=== PATIENT | male | born 1940 | race Caucasian/White ===

== ENCOUNTER → 2018-05-20 | Outpatient (CLI) | payer OTHER ==
[~2018-05-20] MED LIST: AMLODIPINE BESY10 MG PO; ASPIR 8181 MG PO; BYSTOLIC 5 MG5 M1 PO; CHLORTHALIDONE25 MG PO; CLARITIN10 MG PO; CLONIDINE HCL0.2 M2 PO; CO Q-10100 MG PO; DOXYCYCLINE 10100 M1 PO; EDARBI80 MG PO; FIBER500 MG PO; LIPITOR80 MG PO; PLAVIX 75 MG TA75 M1 PO; SPIRONOLACTONE25 M1 PO; SUPER B-50 COM1 EACH PO; XANAX 0.5 MG0.5 MG PO
== END ==
LOC: ULTRA 08:33
DX: Z01.818 Encounter for other preprocedural examination (principal); I25.10 Atherosclerotic heart disease of native coronary artery without angina pectoris; M25.78 Osteophyte, vertebrae; Z95.1 Presence of aortocoronary bypass graft

== ENCOUNTER → 2018-05-20 | Outpatient (CLI) | payer OTHER ==
[~2018-05-20] VITALS: Ht 175.3 cm; Wt 95.3 kg
[~2018-05-20] MED LIST changes: +NAPROSYN500 MG PO
[2018-05-20 10:38] LABS: HEMATOCRIT 40.3 % (42.0-52.0); HEMOGLOBIN 13.9 gm/dL (14.0-18.0); MCH 31.5 pg (26.0-34.0); MCHC 34.5 g/dL (28.0-37.0); MCV 91.4 fL (80.0-100.0); PLATELET COUNT 193 thou/uL (150-400); RBC 4.41 mil/uL (4.50-6.00); RDW 13.1 % (10.5-14.5); WBC 10.1 thou/uL (4.0-11.0)
[2018-05-20 10:46] LABS: URINE CLARITY HAZY
[2018-05-20 10:47] LABS: URINE BILIRUBIN NEGATIVE (Negative); URINE BLOOD NEGATIVE (Negative); URINE COLOR YELLOW; URINE GLUCOSE-RANDOM* NEGATIVE (Negative); URINE KETONES NEGATIVE (Negative); URINE PROTEIN (DIPSTICK) TRACE (Negative)
[2018-05-20 10:48] LABS: URINE LEUKOCYTES-REFLEX 1+ (Negative); URINE NITRITE-REFLEX POSITIVE (Negative); URINE UROBILINOGEN 0.2 E.U./dl (0.2-1.0)
[2018-05-20 10:50] LABS: APTT 30.1 Seconds (24.5-32.8); PROTIME 10.2 Seconds (9.3-11.4)
[2018-05-20 11:00] LABS: SQUAMOUS 0-3 Few /LPF (0-3)
[2018-05-20 11:01] LABS: BACTERIA-REFLEX >30 Many /HPF (None Seen); CASTS None Seen /LPF (None Seen); CRYSTALS None Seen /LPF (None Seen); URINE RBC None Seen /HPF (0-2); URINE WBC-REFLEX >25 Many /HPF (0-5)
[2018-05-20 11:20] LABS: ALBUMIN 3.9 g/dL (3.4-5.0); CALCIUM 10.5 mg/dL (8.5-10.1); CREATININE 1.5 mg/dL (0.7-1.3); POTASSIUM 4.4 mmol/L (3.5-5.1); TOTAL BILIRUBIN 0.6 mg/dL (<0.1-1.0); TOTAL PROTEIN 7.2 g/dL (6.4-8.2)
[2018-05-20 11:35] LABS: ABSOLUTE NEUTROPHILS 6.2 thou/uL (1.4-8.2); METAMYELOCYTES 1 %
[2018-05-20 11:36] LABS: ANISOCYTOSIS SLIGHT
[2018-05-20 23:09] LABS: GLYCOHEMOGLOBIN (HGB A1C) 5.7 % (4.8-5.6)
== END ==
LOC: LAB 05:00 → PRE 05-28 05:36 → EDSTATUS 05-28 17:00
PROVIDERS: Surgery Vascular Surgery
DX: I25.119 Atherosclerotic heart disease of native coronary artery with unspecified angina pectoris (principal)

== ENCOUNTER 2018-06-23 05:24 | Inpatient (IN) | payer OTHER ==
[2018-06-11 10:53] LABS: HEMOGLOBIN 13.9 gm/dL (14.0-18.0); MCH 30.9 pg (26.0-34.0); MCHC 33.8 g/dL (28.0-37.0); MCV 91.2 fL (80.0-100.0); PLATELET COUNT 197 thou/uL (150-400); RDW 13.3 % (10.5-14.5); WBC 6.5 thou/uL (4.0-11.0)
[2018-06-11 11:06] LABS: APTT 30.4 Seconds (24.5-32.8); PROTIME 10.4 Seconds (9.3-11.4)
[2018-06-11 11:09] LABS: ALBUMIN 3.9 g/dL (3.4-5.0); CALCIUM 9.9 mg/dL (8.5-10.1); CREATININE 1.3 mg/dL (0.7-1.3); POTASSIUM 4.2 mmol/L (3.5-5.1); TOTAL BILIRUBIN 0.4 mg/dL (<0.1-1.0); TOTAL PROTEIN 7.4 g/dL (6.4-8.2)
[2018-06-11 11:41] LABS: ABSOLUTE NEUTROPHILS 3.6 thou/uL (1.4-8.2)
[2018-06-11 12:13] LABS: URINE BILIRUBIN NEGATIVE (Negative); URINE CLARITY CLEAR; URINE COLOR YELLOW; URINE GLUCOSE-RANDOM* NEGATIVE (Negative); URINE KETONES NEGATIVE (Negative); URINE PROTEIN (DIPSTICK) 1+ (Negative); URINE SPECIFIC GRAVITY 1.025 (1.005-1.035)
[2018-06-11 12:14] LABS: URINE BLOOD NEGATIVE (Negative); URINE LEUKOCYTES-REFLEX NEGATIVE (Negative); URINE NITRITE-REFLEX NEGATIVE (Negative); URINE UROBILINOGEN 0.2 E.U./dl (0.2-1.0)
[2018-06-11 20:08] LABS: GLYCOHEMOGLOBIN (HGB A1C) 6.1 % (4.8-5.6)
--- NOTE | 2018-06-11 22:16 | EKG ---
[address] [address] ELECTROCARDIOGRAM REPORT Name: JORDI HEMPHILL Room #: PRE IN M.R.#: [id number] Admission: Attend Phys: Jordin Vale MD Discharge: Date of : 42 Report #: [id number] THIS REPORT FOR: //name// [facility] Test Date: 2018-06-11 Test Time: 10:50:52 Pat Name: JORDI HEMPHILL Department: Room: Gender: M Professional Security Officer: SÁNCHEZ HERCULES : 1940 Requested By: Jordin Vale Order Number: [id number] MD: John Almendarez Measurements Intervals [place] Rate: 38 P: 52 VT: 287 QRS: 20 QRSD: 110 T: 20 QT: 465 QTc: 370 Interpretive Statements Sinus bradycardia Prolonged VT interval No previous ECG available for comparison Electronically Signed On 06-11-2018 22:16:33 SHACTOR HELPER by John Almendarez [email or web address] <ELECTRONICALLY SIGNED> By: John Almendarez MD 06/11/18 2216 1050 1050 John Almendarez MD /EPI
[~2018-06-23] VITALS: Ht 175.3 cm; Wt 94.0 kg
[2018-06-23] VITALS (9 sets, daily range): BP systolic 92–147; BP diastolic 42–51
--- NOTE | ~2018-06-23 | HC ---
[facility] [place] [address] CONSULTATION Name: JORDI HEMPHILL Room #: 207-P ADM IN M.R.#: [id number] Admission: 06/23/18 Attend Phys: Jordin Vale MD Discharge: Date of : 42 Report #: [id number] THIS REPORT FOR: //name// CC: Quinten Montejo Ceron DATE OF SERVICE: 06/29/2018 HISTORY OF PRESENT ILLNESS: The patient is a 77-year-old white male with history of severe coronary artery disease, status post coronary bypass grafting x 4 on 06/23/2018. He has had rather slow progress postoperatively with problems with anemia. He had atrial fibrillation with conversion to normal sinus rhythm. He has significant left leg pain and has been diagnosed with left lower extremity cellulitis. Wound care has been consulted. He is on Rocephin. Venous Doppler study was obtained and noted to be negative. He is needing considerable assistance with his functional mobility. We are seeing him in rehabilitation medicine consultation. PAST MEDICAL HISTORY: Includes hypertension, hyperlipidemia, obstructive sleep apnea with CPAP, rectal fistula repair, bilateral cataract surgery. MEDICATIONS: Please see the full medication listing. ALLERGIES: KAMILLA INHIBITORS. HABITS: Alcohol just on special occasions. No history of tobacco abuse. SOCIAL HISTORY: Lives in a house with his , ranch style, premorbid was independent without gait aids, driving. There is one step in. REVIEW OF SYSTEMS: Did not offer any current complaints of chest pain, shortness of breath, abdominal discomfort. He did have some renal insufficiency with an elevated creatinine as well during his recovery. PHYSICAL EXAMINATION: GENERAL: A 77-year-old white male in no obvious distress. VITAL SIGNS: Last recorded temperature 99.7, pulse 60, respirations 18, blood pressure 166/65. He is alert, pleasant. HEENT: Appeared to be benign. NEUROLOGIC: Cranial nerves are grossly intact. Facies are symmetric. He seems rather frustrated with this current condition. He has a midline sternal incision, which is dressed. EXTREMITIES: Functional range of motion of the upper extremities. Strength is grade 4-/5. DTRs are trace to 1. Lower extremities: He has considerable erythema of the left lower extremity. He does have some swelling of the left [address] [address] CONSULTATION Name: JORDI HEMPHILL Room #: 207-P ADM IN M.R.#: [id number] Admission: 06/23/18 Attend Phys: Jordin Vale MD Discharge: Date of : 42 Report #: [id number] leg. He is unable to lift the left lower extremity for me. Complains of pain with attempted movement. He can wiggle the toes. He does have some limited movement of the left leg, probably at least a grade 3. Right lower extremity, he moves better with strength probably a grade 4-. Functionally, he has been max assist coming to stand. He has ambulated 12 feet mod assist with a front-wheeled walker. ASSESSMENT: A 77-year-old white male with the following problems: 1. Medical complexity with generalized debilitation. 2. Severe coronary artery disease, status post coronary artery bypass grafting x 4. 3. Left lower extremity cellulitis. 4. Atrial fibrillation with conversion to normal sinus rhythm. 5. Renal insufficiency. 6. Left lower extremity edema. 7. Acute blood loss anemia. 8. Hypertension. 9. Significant functional mobility and activities of daily living deficits. PLAN: Insurance will be checked regarding a short acute in-hospital inpatient rehabilitation stay. Note that Wound Care has been consulted regarding concerns with left lower extremity cellulitis. He needs significant assistance for basic functional mobility and ADLs. Insurance will be checked and we will be glad to follow regarding rehabilitation issues. By: 1410 0125 Cyrus Segovia MD /nt
[2018-06-23 12:13] LABS: POC BE -4 mmol/L (-2.0 to +3.0); POC CA IONIZED 5.5 mg/dL (4.5-5.3); POC GLUCOSE 114 mg/dL (70-99); POC HCO3 21.4 mmol/L (22.0-26.0); POC HEMOGLOBIN 11.6 g/dL (14.0-18.0); POC POTASSIUM 4.5 mmol/L (3.5-5.1); POC SODIUM 144 mmol/L (136-145); POC pCO2 37.1 mmHg (35.0-45.0); POC pH 7.369 (7.360-7.450)
[2018-06-23 12:14] LABS: POC BE -2 mmol/L (-2.0 to +3.0); POC CA IONIZED 5.3 mg/dL (4.5-5.3); POC GLUCOSE 128 mg/dL (70-99); POC HCO3 22.7 mmol/L (22.0-26.0); POC HEMOGLOBIN 10.5 g/dL (14.0-18.0); POC POTASSIUM 4.6 mmol/L (3.5-5.1); POC SODIUM 142 mmol/L (136-145); POC pCO2 35.9 mmHg (35.0-45.0); POC pH 7.409 (7.360-7.450)
[2018-06-23 12:14] LABS: POC BE -4 mmol/L (-2.0 to +3.0); POC CA IONIZED 4.9 mg/dL (4.5-5.3); POC GLUCOSE 176 mg/dL (70-99); POC HCO3 23.4 mmol/L (22.0-26.0); POC HEMOGLOBIN 7.8 g/dL (14.0-18.0); POC POTASSIUM 4.3 mmol/L (3.5-5.1); POC SODIUM 141 mmol/L (136-145); POC pH 7.222 (7.360-7.450)
[2018-06-23 12:14] LABS: POC BE -3 mmol/L (-2.0 to +3.0); POC CA IONIZED 4.7 mg/dL (4.5-5.3); POC GLUCOSE 132 mg/dL (70-99); POC HCO3 21.6 mmol/L (22.0-26.0); POC HEMOGLOBIN 9.2 g/dL (14.0-18.0); POC SODIUM 139 mmol/L (136-145); POC pCO2 36.2 mmHg (35.0-45.0); POC pH 7.385 (7.360-7.450)
[2018-06-23 12:14] LABS: POC BE -2 mmol/L (-2.0 to +3.0); POC CA IONIZED 5.4 mg/dL (4.5-5.3); POC GLUCOSE 158 mg/dL (70-99); POC HCO3 23.2 mmol/L (22.0-26.0); POC HEMOGLOBIN 7.1 g/dL (14.0-18.0); POC POTASSIUM 3.6 mmol/L (3.5-5.1); POC SODIUM 143 mmol/L (136-145); POC pCO2 41.1 mmHg (35.0-45.0)
[2018-06-23 12:14] LABS: POC BE -4 mmol/L (-2.0 to +3.0); POC GLUCOSE 173 mg/dL (70-99); POC HCO3 23.2 mmol/L (22.0-26.0); POC HEMOGLOBIN 8.8 g/dL (14.0-18.0); POC POTASSIUM 4.3 mmol/L (3.5-5.1); POC SODIUM 143 mmol/L (136-145); POC pCO2 49.3 mmHg (35.0-45.0); POC pH 7.281 (7.360-7.450)
[2018-06-23 12:14] LABS: MCH 31.6 pg (26.0-34.0); MCHC 35.1 g/dL (28.0-37.0); MCV 89.9 fL (80.0-100.0); RBC 2.46 mil/uL (4.50-6.00); RDW 13.4 % (10.5-14.5); WBC 9.1 thou/uL (4.0-11.0)
[2018-06-23 12:14] LABS: POC BE -2 mmol/L (-2.0 to +3.0); POC CA IONIZED 4.9 mg/dL (4.5-5.3); POC GLUCOSE 152 mg/dL (70-99); POC HCO3 23.9 mmol/L (22.0-26.0); POC HEMOGLOBIN 9.5 g/dL (14.0-18.0); POC POTASSIUM 4.7 mmol/L (3.5-5.1); POC SODIUM 142 mmol/L (136-145); POC pCO2 43.2 mmHg (35.0-45.0); POC pH 7.351 (7.360-7.450)
[2018-06-23 12:16] LABS: HEMATOCRIT 22.2 % (42.0-52.0); HEMOGLOBIN 7.8 gm/dL (14.0-18.0)
[2018-06-23 12:24] LABS: INR 1.3
[2018-06-23 12:26] LABS: FIBRINOGEN 167.2 mg/dL (210-360)
--- NOTE | 2018-06-23 13:17 | NUR ---
RD consult received for pt s/p CABG 06/23. Will follow up for any dietary education needs once pt transferred out of ICU and closer to discharge
[2018-06-23 13:20] LABS: BE(vivo) -4.1 mmol/L (-2 to +3); PCO2 44.5 mmHg (35.0-45.0); PO2 154.6 mmHg (80.0-100.0); pH 7.311 (7.360-7.450); sO2 98.8 % (92.0-98.0)
[2018-06-23 13:29] LABS: HEMATOCRIT 26.4 % (42.0-52.0); HEMOGLOBIN 9.1 gm/dL (14.0-18.0); MCH 30.9 pg (26.0-34.0); MCHC 34.6 g/dL (28.0-37.0); MCV 89.4 fL (80.0-100.0); RBC 2.96 mil/uL (4.50-6.00); RDW 13.1 % (10.5-14.5); WBC 11.1 thou/uL (4.0-11.0)
[2018-06-23 13:33] LABS: CALCIUM 8.9 mg/dL (8.5-10.1); CREATININE 1.2 mg/dL (0.7-1.3); MAGNESIUM 1.8 mg/dL (1.8-2.4); POTASSIUM 4.2 mmol/L (3.5-5.1)
[2018-06-23 13:39] LABS: APTT 32.9 Seconds (24.5-32.8); INR 1.2; PROTIME 12.8 Seconds (9.3-11.4)
--- NOTE | 2018-06-23 15:38 | NUR ---
PT ADMITTED TO ROOM 236 S/P CABG X 4. PT ARRIVED AT [address] KONG, DR CANTU AND 2 ANESTHESIA RNS. PT ARRIVED ON LEVOPHED GTT FOR BP SUPPORT. NO SEDATION RUNNING. PT ON VENT (SEE VENT SETTINGS). PT HAS RT JUGULAR SWAN AND L RADIAL ART LINE. MEDIASTINAL CHEST TUBES AND PLEURAL CHEST TUBE HOOKED TO SUCTION. SORIANO CATH TO DD, GOOD UOP. PT'S AND CHILDREN UPDATED TO POC GOALS, VISITED PT, AND ORIENTED TO ICU.
[2018-06-23 17:24] LABS: BE(vivo) -4.4 mmol/L (-2 to +3); HCO3 21.1 mmol/L (22.0-26.0); PCO2 40.4 mmHg (35.0-45.0); PO2 124.6 mmHg (80.0-100.0); pH 7.335 (7.360-7.450); sO2 98.3 % (92.0-98.0)
--- NOTE | 2018-06-23 18:13 | NUR ---
PT AWOKE AND ABLE TO FOLLOW COMMANDS, CPAP TRIAL FOR 30 MINUTES, ABG OBTAINED, AFTER CONSULTING WITH RT, DECISION TO EXTUBATE. PT EXTUBATED @ 1735, ON FACE SHIELD AT 40%. PT A/OX 4. VSS. SR ON TELE. PT C/O STERNAL PAIN, PRN FENTANYL GIVEN AND EFFECTIVE. DR EPPERSON UPDATED, NO NEW ORDERS. PT'S FAMILY AT BEDSIDE.
[2018-06-24] VITALS (15 sets, daily range): BP systolic 90–122; BP diastolic 34–85
[2018-06-24 06:12] LABS: HEMATOCRIT 23.9 % (42.0-52.0); HEMOGLOBIN 8.7 gm/dL (14.0-18.0); MCHC 36.3 g/dL (28.0-37.0); MCV 88.1 fL (80.0-100.0); RBC 2.71 mil/uL (4.50-6.00); RDW 13.3 % (10.5-14.5); WBC 11.1 thou/uL (4.0-11.0)
[2018-06-24 06:22] LABS: INR 1.1
[2018-06-24 06:27] LABS: CALCIUM 8.7 mg/dL (8.5-10.1); CREATININE 2.1 mg/dL (0.7-1.3); MAGNESIUM 2.1 mg/dL (1.8-2.4); POTASSIUM 4.9 mmol/L (3.5-5.1)
--- NOTE | 2018-06-24 06:28 | NUR ---
Pt progressing well with stable VS. Remains on Cardene gtt for elevated BP. SpO2 adequate on 2L of O2 and requires a lot of encouragement with pulmonary toileting. PRN fentanyl and hydrocodones given for c/o chest "soreness" with desired effects achieved. Urine output adequate for shift and chest tube drainage minimal. Am labs pending, continue with POC.
--- NOTE | 2018-06-24 07:54 | EKG ---
[address] [place] [address] ELECTROCARDIOGRAM REPORT Name: JORDI HEMPHILL Room #: 236-P ADM IN M.R.#: [id number] Admission: 06/23/18 Attend Phys: Jordin Vale MD Discharge: Date of : 42 Report #: [id number] THIS REPORT FOR: //name// [facility] Test Date: 2018-06-23 Test Time: 16:36:44 Pat Name: JORDI HEMPHILL Department: Room: 236 Gender: M Automobile Dealer: Ghazala COTE : 1940 Requested By: Jordin Vale Order Number: [id number] MD: Sunil Goode Measurements Intervals [place] Rate: 87 P: 224 PA: 284 QRS: 52 QRSD: 111 T: -9 QT: 372 QTc: 448 Interpretive Statements Sinus or ectopic atrial rhythm Prolonged PA interval Borderline T abnormalities, anterior leads Compared to ECG 06/11/2018 10:50:52 Ectopic atrial rhythm now present T-wave abnormality now present Sinus bradycardia no longer present Electronically Signed On 06-24-2018 7:54:33 CAGE UNLOADER by Sunil Goode [email or web address] <ELECTRONICALLY SIGNED> By: Sunil Goode MD, [facility] 06/24/18 0754 1636 1636 Sunil Goode MD, [facility] /EPI
--- NOTE | 2018-06-24 13:33 | NUR ---
Case opened to follow for dc planning. Pt is currently in ICU s/p cabg pod#1. Pt up to the chair this am. CM assessment completed with his and dtr who were visiting. The pt was indep, active and driving prior to admission. They have two steps to enter their home. His pcp is Dr. Ceron. No cm needs identified at this time. Pt will likely be able to dc to outpt f/u and cardiac rehab pending his progress. CM role introduced. Will remain availble should dc needs arise.
--- NOTE | 2018-06-24 18:02 | NUR ---
PT IS ALERT AND ORIENTED X4. DROWSY AT TIMES. LUGNS ARE CLEAR TO DIMINISHED. ON 15 LITERS PER MASK. PT TENDS TO HOLD HIS BREATH AT TIMES. PT HAS BEEN UP TO THE CHAIR TODAY. PHYSICAL THERAPY WORKED WITH PT. OXYGEN SATURATION IS 91 % ON MASK. NURSE HELPED PT TO USE INCENTIVE SPIROMETER. BED BATH DONE TODAY. EATING A LITTLE BIT OF HEART HEALTHY DIET. SORIANO TO DD WITH ORANGE URINE. ENCOURAGE PT TO DRINK FLUIDS. CHEST TUBES REMAIN IN PLACE. SWAN IS REMOVED. PAIN MEDS GIVEN FOR DISCOMFORT TODAY. RESTING AND TIRED AFTER TODAY. CALL LIGHT WITHIN REACH. REMAINS OF CARDENE DRIP AT 11MG/HR
[2018-06-25] VITALS (14 sets, daily range): BP systolic 119–165; BP diastolic 34–54
--- NOTE | 2018-06-25 04:48 | NUR ---
PT AOX4, DROWSY DURING THE SHIFT. C/O PAIN WITH MOVEMENT. AFEBRILE. ON CARDENE GTT CURRENTLY AT 5MG/HR, TO KEEP BP LESS THAN 140. ON 60% FACESHIELD, INCREASE IN O2 DEMAND. DR. CANTU AWARE. EDUCATED PT ABOUT DEEP BREATHING AND IS USAGE. RT JOSE EDUARDO, WORKED WITH PATIENT DURING THE NIGHT WITH IS. CHEST TUBES IN PLACE AND PATENT. OUTPUT NOTED. URINE OUTPUT NOTED. LEFT LEG DRESSING C/D/I. MIDSTERNAL INCISION C/D/I. LEFT ARTLINE IN PLACE. NO COMPLAINS PRESENTLY. WILL CONTINUE TO MONITOR PT. SLOWLY PROGRESSING TOWARDS GOALS
[2018-06-25 05:01] LABS: HEMATOCRIT 21.6 % (42.0-52.0); HEMOGLOBIN 7.3 gm/dL (14.0-18.0); MCH 30.7 pg (26.0-34.0); MCHC 33.8 g/dL (28.0-37.0); MCV 90.7 fL (80.0-100.0); RBC 2.38 mil/uL (4.50-6.00); RDW 13.6 % (10.5-14.5); WBC 12.3 thou/uL (4.0-11.0)
[2018-06-25 05:12] LABS: CALCIUM 8.9 mg/dL (8.5-10.1); CREATININE 2.2 mg/dL (0.7-1.3); POTASSIUM 4.3 mmol/L (3.5-5.1)
--- NOTE | 2018-06-25 09:19 | EKG ---
[place] [address] [address] [place] [address] ELECTROCARDIOGRAM REPORT Name: JORDI HEMPHILL Room #: 236-P ADM IN M.R.#: [id number] Admission: 06/23/18 Attend Phys: Jordin Vale MD Discharge: Date of : 42 Report #: [id number] THIS REPORT FOR: //name// [facility] Test Date: 2018-06-24 Test Time: 07:09:24 Pat Name: JORDI HEMPHILL Department: Room: 236 P Gender: M Fuse Cup Expander: GR : 1940 Requested By: Jordin Vale Order Number: [id number] MD: Sunil Goode Measurements Intervals [place] Rate: 57 P: 71 IL: 234 QRS: 31 QRSD: 90 T: 35 QT: 420 QTc: 409 Interpretive Statements Sinus rhythm Prolonged [place] interval Minimal diffuse ST elevation, consider pericarditis Poor R wave progression Compared to ECG 06/11/2018 10:50:52 Poor R wave progression is present Sinus bradycardia no longer present Electronically Signed On 06-25-2018 9:19:44 SNOW REMOVAL/PLOWING by Sunil Goode [email or web address] <ELECTRONICALLY SIGNED> By: Sunil Goode MD, [facility] 06/25/18918 8 8 Sunil Goode MD, [facility] /EPI
--- NOTE | 2018-06-25 09:45 | EKG ---
[address] [employer] [address] ELECTROCARDIOGRAM REPORT Name: JORDI HEMPHILL Room #: 236-P ADM IN M.R.#: [id number] Admission: 06/23/18 Attend Phys: Jordin Vale MD Discharge: Date of : 42 Report #: [id number] THIS REPORT FOR: //name// [facility] Test Date: 2018-06-25 Test Time: 06:54:30 Pat Name: JORDI HEMPHILL Department: Room: 236 P Gender: M Curing Press Operator: MARYANNE : 1940 Requested By: Rama Nick Order Number: [id number] MD: Sunil Goode Measurements Intervals [place] Rate: 74 P: -47 TN: 239 QRS: 19 QRSD: 134 T: 29 QT: 400 QTc: 444 Interpretive Statements Sinus rhythm Prolonged TN interval Anterolateral infarct, age indeterminate Compared to ECG 06/23/2018 16:36:44 Minimal, diffuse ST segment elevation is less pronounced Electronically Signed On 06-25-2018 9:44:51 TRANSPORT CONDUCTOR by Sunil Goode [email or web address] <ELECTRONICALLY SIGNED> By: Sunil Goode MD, [facility] 06/25/18 0944 3 Sunil Goode MD, [facility] /EPI
[2018-06-25 17:11] LABS: HEMOGLOBIN 8.7 gm/dL (14.0-18.0)
--- NOTE | 2018-06-25 17:15 | NUR ---
PT CONTINUES TO SLOWLY IMPROVE - OOB FOR A FEW HOURS AND ABLE TO WORK /C PHYSICAL THERAPY - ENCOURAGED PT ALL DAY TO PARTICIPATE IN CARE IN ORDER TO AVOID SET BACKS, INCLUDING PNEUMONIA - FAMILY AT BEDSIDE MAJORITY OF DAY ALSO ENCOURAGING PT TO TRY - EATING A FEW BITES OF EACH MEAL - BLOOD PRESSURE REMAINS WITH IN LIMITS SET BY DOCTOR - ON BIPAP IN THE MORNING HOURS AND MAINTAINING SATS /C HIGH FLOW NC FOR THE REST OF THE SHIFT - DR. EPPERSON REMOVED MEDIASTINAL CHEST TUBES
[2018-06-26] VITALS (18 sets, daily range): BP systolic 122–145; BP diastolic 43–55
[2018-06-26 06:16] LABS: HEMATOCRIT 24.5 % (42.0-52.0); HEMOGLOBIN 8.2 gm/dL (14.0-18.0); MCH 29.7 pg (26.0-34.0); MCHC 33.6 g/dL (28.0-37.0); MCV 88.3 fL (80.0-100.0); RBC 2.77 mil/uL (4.50-6.00); RDW 15.3 % (10.5-14.5); WBC 11.8 thou/uL (4.0-11.0)
[2018-06-26 06:29] LABS: ALBUMIN 2.8 g/dL (3.4-5.0); CALCIUM 9.5 mg/dL (8.5-10.1); CREATININE 1.7 mg/dL (0.7-1.3); POTASSIUM 4.1 mmol/L (3.5-5.1); TOTAL BILIRUBIN 0.7 mg/dL (<0.1-1.0); TOTAL PROTEIN 6.2 g/dL (6.4-8.2)
--- NOTE | 2018-06-26 07:30 | NUR ---
ASSUMED CARE OF PT AT 1900. PT ORIENTED TO PERSON, PLACE AND SITUATION. AT TIMES PT FORGETFULL, BUT WAS EASILY REDIRECTABLE. PT IS ANXIOUS WITH ANY KIND OF MOVEMENT AND ANTICIPATES PAIN. HE TOLERATED TRANSFERING TO CHAIR THIS AM, HE REQUIRES CONSTANT REASSURANCE AND TO BE WALKED THROUGH STEPS. SR W/ FIRST DEGREE AV BLOCK. PT REQUIRED CARDENE AT TIMES FOR BP. PT'S BP GETS ELEVATED WITH ANXIETY AND PAIN. GOOD UO. POOR APPETITE THROUGH OUT THE SHIFT. PT PREFERS ROOM TEMPERATURE WATER. WILL CONTINUE TO MONITOR PT. PT MAKING PROGRESS TOWARDS GOALS.
--- NOTE | 2018-06-26 08:23 | EKG ---
[address] [place] [address] ELECTROCARDIOGRAM REPORT Name: JORDI HEMPHILL Room #: 236-P ADM IN M.R.#: [id number] Admission: 06/23/18 Attend Phys: Jordin Vale MD Discharge: Date of : 42 Report #: [id number] THIS REPORT FOR: //name// [facility] Test Date: 2018-06-26 Test Time: 07:26:41 Pat Name: JORDI HEMPHILL Department: Room: 236 P Gender: M Gas Plant Worker: MARYANNE : 1940 Requested By: Rama Nick Order Number: [id number] MD: Sunil Goode Measurements Intervals [place] Rate: 71 P: 47 [place]: 224 QRS: 17 QRSD: 119 T: 10 QT: 441 QTc: 480 Interpretive Statements Sinus rhythm Prolonged [place] interval Nonspecific intraventricular conduction delay Anterolateral infarct, age indeterminate Compared to ECG 06/25/2018 06:54:30 No significant change was found Electronically Signed On 06-26-2018 8:23:03 FLIGHT DYNAMICIST by Sunil Goode [email or web address] <ELECTRONICALLY SIGNED> By: Sunil Goode MD, [facility] 06/26/18822 5 5 Sunil Goode MD, [facility] /EPI
--- NOTE | 2018-06-26 08:52 | NUR ---
ICU rounds: appetite decreased following CABG 06/23. Still in ICU. Will offer ensure supplement bid until intake improved. Address any nutrition education needs once transferred out of ICU.
--- NOTE | 2018-06-26 19:15 | NUR ---
SHIFT SUMMARY: PT SLOWLY PROGRESSING TODAY. PT MORE MOTIVATED TO REACH FOR A DRINK, MOVE HIS ARMS, LEGS AND PARTICIPATE WITH REPOSITIONING. HYDROCODONE GIVEN FOR DISCOMFORT ASSOCIATED WITH MOVEMENT. SR WITH FIRST DEGREE AV BLOCK, PCT WITH MINIMAL OUTPUT, PACING WIRES INTACT, L LEG WITH FIRM EDEMA, 02 TITRATED RANGING FROM 10-15 LITER/HIGH FLOW NC & CURRENTLY 10 L/HIGH FLOW NC. LUNGS CLEAR AND DIMINISHED IN CORNELIO BASES. ENCOURAGING DEEP BREATHING/COUGH AND/OR USE OF INCENTIVE SPIROMETER WHILE SPLINTING HEART PILLOW. PT VERY SLOWLY PROGRESSING WITH TAKING DEEP BREATHS AND USE OF INCENTIVE SPIROMETER IS PRIMARILY 500CC. VERY SHALLOW COUGH, NO SPUTUM PRODUCTION. POOR APPETITE HOWEVER PT SPONTANEOUSLY FED HIMSELF HIS EVENING MEAL. ADEQUATE URINE OUTPUT. AND ALL FAMILY MEMBERS PROVIDING SUPPORT/ENCOURAGEMENT.
[2018-06-27] VITALS (25 sets, daily range): BP systolic 93–162; BP diastolic 44–84
[2018-06-27 06:09] LABS: HEMATOCRIT 23.4 % (42.0-52.0); HEMOGLOBIN 8.1 gm/dL (14.0-18.0); MCHC 34.6 g/dL (28.0-37.0); MCV 89.7 fL (80.0-100.0); RBC 2.61 mil/uL (4.50-6.00); RDW 15.1 % (10.5-14.5); WBC 10.5 thou/uL (4.0-11.0)
[2018-06-27 06:26] LABS: ALBUMIN 2.7 g/dL (3.4-5.0); CALCIUM 9.2 mg/dL (8.5-10.1); CREATININE 1.6 mg/dL (0.7-1.3); TOTAL BILIRUBIN 0.8 mg/dL (<0.1-1.0); TOTAL PROTEIN 6.2 g/dL (6.4-8.2)
--- NOTE | 2018-06-27 07:15 | NUR ---
ASSUMED CARE OF PT AT 1900. PT A&O X3 WITH SOME DROWSINESS. PT WAS SLOW TO RESPOND AT TIMES. ENCOURAGEMENT AND DIRECTION GIVEN TO PT TO DEEP BREATHE AND USE INCENTIVE SPIROMETER, BUT PT WAS UNABLE TO FOLLOW AND CONTINUED TO TAKE SHORT, SHALLOW BREATHS. BARELY ACHIEVED 500 ON IS, DESPITE EXTENSIVE COACHING AND TEACHING. CARDENE GTT TURNED OFF AT MN AND THEN HAD TO BE RESTARTED AT 0415, DO TO THE PT BECOMING INCREASINGLY HYPERTENSIVE. PT RARELY C/O PAIN; NORCO GIVEN X1. PT NEEDS ENCOURAGEMENT AND TEACHING ON POST OP BREATHING EXERCISES IN ORDER TO PROGRESS. WILL CONTINUE TO MONITOR.
--- NOTE | 2018-06-27 14:34 | O ---
[facility] [place] [address] [place] [address] OPERATIVE REPORT Name: JORDI HEMPHILL Room #: 236-P ADM IN M.R.#: [id number] Admission: 06/23/18 Attend Phys: Jordin Vale MD Discharge: Date of : 42 Report #: [id number] THIS REPORT FOR: //name// CC: Quinten Ceron DATE OF SERVICE: 06/23/2018 PREOPERATIVE DIAGNOSIS: Coronary artery disease. POSTOPERATIVE DIAGNOSIS: Coronary artery disease. OPERATION: Coronary artery bypass x 4 including left internal mammary artery to left anterior descending artery, saphenous vein to diagonal, marginal 1, and marginal 2 and endoscopic harvest, left greater saphenous vein. SURGEON: Jordin Vale M.D. HOME ENERGY RATER: ASYA Nieves ANESTHESIA: General. INDICATIONS: The patient is a 77-year-old with 80% left main coronary stenosis, seen for Dr. Weems. The patient was treated primarily by Dr. Ceron. The patient has had some generalized fatigue, which led to the cardiac workup and the left main stenosis was identified along with hemodynamically significant mid LAD and first marginal lesions. Left ventricular function was satisfactory. Right coronary had trivial disease. FINDINGS AND TECHNIQUE: After general anesthesia was established, saphenous vein was harvested using an endoscopic approach and prepared for use as a conduit. Exposure was obtained through median sternotomy. Left internal mammary artery was harvested. Pericardial well was made. Cannulation sutures were placed. Heparin was given. Aorta was cannulated. Right atrium was cannulated. Cardioplegia needle was positioned in the aortic root. Retrograde cardioplegic catheter was placed in coronary sinus. Cardiopulmonary bypass was established. The aorta was cross-clamped antegrade then retrograde cardioplegia was given. Ice was poured into the pericardial well. The heart was stopped. During electromechanical arrest, the distal anastomoses were performed and end-to-side anastomosis was made between vein and the large second marginal artery. This was a 2 mm vessel. Cold cardioplegia was given. The same segment of vein was sewn in ghzn-gt-wpyw fashion to the first marginal. This was a 1.5 [facility] [address] [place] [address] OPERATIVE REPORT Name: JORDI HEMPHILL Room #: 236-P [facility] IN M.R.#: [id number] Admission: 06/23/18 Attend Phys: Jordin Vale MD Discharge: Date of : 42 Report #: [id number] vessel. Cold cardioplegia was given. The same segment of vein was sewn in kusw-mg-bswv fashion to the diagonal artery. This was a 1.3 mm vessel. Cold cardioplegia was given. Left internal mammary artery was sewn in end-to-side fashion to the left anterior descending artery. The patency of this vessel was checked with the temperature technique. LAD was a 2 mm vessel where bypassed. Cold cardioplegia was given. One proximal anastomosis was performed. When this was complete, warm retrograde cardioplegia was given followed by warm continuous blood to the coronary sinus. When this infusion was complete, the cross-clamp was removed, de-airing maneuvers were performed. The anastomoses were inspected and found to be satisfactory. As the patient warmed, nice cardiac activity resumed. Chest tubes and pacing wires were placed. A marker was placed around the proximal anastomoses. When the patient was warmed, he was weaned from cardiopulmonary bypass. Venous cannula was removed. Protamine was given. The aortic cannula was removed. Flows were measured in the bypass grafts. When hemostasis was satisfactory, the chest was closed in the usual fashion. The patient was taken to the intensive care unit in good condition having tolerated the procedure well. All counts reported as correct. <ELECTRONICALLY SIGNED> By: Jordin Vale MD 06/27/18 1434 1546 1725 Jordin Vale MD /nt
--- NOTE | 2018-06-27 15:55 | NUR ---
SHIFT SUMMARY: DROWSY BUT EASILY AROUSABLE AND IS ORIENTED. UP TO THE CHAIR A COUPLE OF TIMES AND WORKED WITH P.T. REQUIRES ALOT OF ENCOURAGEMENT TO DO ANYTHING. ENCOURAGED TO COUGH AND DEEP BREATH. CT AND PACER WIRES DC'D BY PHYSICIAN. BO DC'D AND URINAL PROVIDED. WENT INTO A-FIB EARLY IN THE MORNING AROUND 0800, DR. REYES IN ROUNDING AND ORDERED AMIO PROTOCOL. AMIO BOLUS AND GTT STARTED. PATIENT BACK IN SR AT AROUND 1110. TOLERAING DIET W/O NAUSEA BUT POOR APPETITE. WILL CONTINUE TO MONITOR.
[2018-06-28] VITALS (19 sets, daily range): BP systolic 108–163; BP diastolic 50–65
--- NOTE | 2018-06-28 02:42 | NUR ---
ASSUMED CARE OF PT AT 1900. PT'S ORIENTATION HAS IMPROVED, BUT IS STILL FORGETFUL AT TIMES. PT ENCOURAGED TO USE INCENTIVE SPIROMETER, PT DID SOMEWHAT BETTER THAN THE PRIOR NIGHT, BUT IS STILL FAR FROM GOAL. PT NOW ON 2L O2 NC AND O2 SAT RANGES FROM 94-98%. DENIES HAVING ANY PAIN. PT SAID HE HAD SOME PAIN IN HIS LEFT LEG AFTER GETTING UP IN THE CHAIR, BUT THE PAIN HAS BEEN UNDER CONTROL SINCE HE WAS GIVEN PAIN MEDICATION. ON AMIO GTT, RHYTHM IS SINUS WITH A 1ST DEGREE BLOCK. WILL CONTINUE TO MONITOR.
[2018-06-28 04:26] LABS: HEMATOCRIT 23.8 % (42.0-52.0); HEMOGLOBIN 8.1 gm/dL (14.0-18.0); MCH 30.8 pg (26.0-34.0); MCHC 34.2 g/dL (28.0-37.0); RBC 2.65 mil/uL (4.50-6.00); RDW 15.3 % (10.5-14.5); WBC 10.7 thou/uL (4.0-11.0)
--- NOTE | 2018-06-28 14:41 | NUR ---
PATIENT ALERT AND ORIENTED. VITALS STABLE AND PATIENT SEEMS MORE POSITIVE AND WORKING TOWARDS GOALS. UP TO THE CHAIR THIS MORNING AND TOLERATING DIET. OCCASIONALLY C/O PAIN IN LLE. AMIO GTT DC'D AND RESUMED P.O. ORDERS TO TRANSFER TO CCU RECEIVED. REPORTED OFF TO SÁNCHEZ EVANS AT 1100.
--- NOTE | 2018-06-28 18:44 | NUR ---
RECEIVED PT FROM [facility] VIA WHEELCAHIIR. PLACED IN CHAIR. VSS NSR1% AV BLOCK.LUNGS CLEAR AND DIMININSHED O2 SAT RA IS 94% , RAISES IS TO 1000, ENCOURAGED. PT DID TAKE FEW STEPS TO CHAIR WITH MAX ASSIST 2. SLOW TO AMBULATE. INCISIONS MIDLINE AND L LEG DRESSINGS INTACT. LEFT LEG WARM TO TOUCH AND EDEMATOUS. WILL CONTINUE TO MONITER AND CARE FOR PT PER PLAN OF CARE
[2018-06-29 00:06] VITALS: BP 145/67
[2018-06-29 04:48] VITALS: BP 162/70
[2018-06-29 08:13] VITALS: BP 146/61
--- NOTE | 2018-06-29 08:33 | NUR ---
PT ASSISTED OUT OF CHAIR AND BACK TO BED WITH ASSIST OF 2 REFUSING TO MOVE LEFT LEG BECAUSE OF PAIN, PRN PAIN MED GIVEN AND STATES IT ONLY HURTS WHEN MOVING LEG, ENCOURAGED TO ASK FOR PAIN MEDS, AND CDB AFTER USING IS, PT USING URINAL AND ABLE TO USE WATER PITCHER TO DRINK, VSS, REMAINS NSR, PT SLEEPING INTERMITENTLY, O2 SAT CHECKED AT 0300 AT 88% PLAced on 2L/NC SATS BACK UP TO 98%, WILL CON'T TO MONITOR PER PPOC.
[2018-06-29 08:49] LABS: CALCIUM 9.4 mg/dL (8.5-10.1); CREATININE 1.4 mg/dL (0.7-1.3); POTASSIUM 4.1 mmol/L (3.5-5.1)
[2018-06-29 12:40] VITALS: BP 166/65
--- NOTE | 2018-06-29 15:51 | NUR ---
WOUND CONSULT: PT. WAS SEEN TODAY BY DR. CLAUDIO AND MYSELF. PT. HAS CELLULITIS TO HIS LLE ALONG WITH SOME BLISTERS. RECOMMENDATIONS: WOUND CARE TO LEFT MEDIAL CALF: GENTLY CLEANSE WITH WOUND CLEANSER OR NORMAL SALINE, COVER WITH OPTIFOAM BORDER, COMPLETE CARES DAILY AND PRN SOILAGE. PT. AND STAFF NURSE WERE INSTRUCTED ON PLAN OF CARE.
[2018-06-29 16:21] VITALS: BP 151/59
--- NOTE | 2018-06-29 16:36 | NUR ---
VSS NSR 1% AV BLOSCK, LUNGS DIMINISHED O2 SAT RA IS 97%, ENCOUAGED IS RAISED TO 1000, LEFT LEG REMAINS RED AND WARM TO TOUCH AND EDEMATOUS. PT DID GET UP WITH MAX ASSIST TO STANDING AND WALKED TO BRP WITH WALKER WITH PT AND BARGE LOADER, REQUIRED MAX ASSISTING BUT DID MANAGE TO AMBULTE X 2 TODAY. PT DID SHOWER. DRESSINGS TO MIDLINE AND LEFT LEG CHANGED. WILL CONTINUE TO MONITER AND CARE FOR PT PER PLAN OF CARE
[2018-06-29 20:15] VITALS: BP 158/54
[2018-06-30 04:30] VITALS: BP 144/59
--- NOTE | 2018-06-30 05:39 | NUR ---
ASSESSMENT DOCUMENTED.PT BEEN RESTING IN NO ACUTE DISTRESS.VSS.CPAP ON FOR SIX HRS WHILE SLEEPING,TOLERATED.ON RA WITH ADEQAUTE SPO2.PT AMBULATED IN THE ROOM WITH ASSIST OF 2,PT SEEMS VERY WEEK THOUGH HE STATED HE FEELS A LITTLE STRONG.STATED PAIN OF 1/10,DECLINING PAIN MEDS.LEFT LEG REMAINS EDEMATOUS,WARM AND ERTYHTHEMA.ICE PACKS PROVIDED PER PT'S REQUEST.ON ANTIBIOTICS.VOIDING VIA URINAL.SINUS RHYTHM W/1DEG ON MONITOR.SURGICAL INCISIONS COVERED W/CDI DRESSING.STERNAL PRECAUTIONS ENFORCED.WILL CONT TO MONITOR PER POC.
[2018-06-30 07:36] VITALS: BP 151/48
--- NOTE | 2018-06-30 11:45 | NUR ---
Nutrition: pt seen post CABG x 4. Continues to c/o poor appetite post op. Is drinking ensure BID. RD obtained food preferences, instructed on alternative menu ordering, present. Assisted in ordering dinner. Both pt and familiar with heart healthy diet, instruction materials in book pointed out. Current weight down 3# or 1% from usual. Not significant. Will offer ensure on all tray til appetite improves.
[2018-06-30 12:21] VITALS: BP 122/50
--- NOTE | 2018-06-30 12:39 | NUR ---
WOUND FOLLOW UP: PT. WAS SEEN TODAY BY DR. CLAUDIO AND MYSELF. PT. LEFT LEG LOOKS CLINICALLY BETTER TODAY THEN YESTERDAYS ASSESEMENT. RECOMMENDATIONS: CONTINUE WITH CURRENT PLAN OF CARE. PT. AND STAFF NURSE WERE INSTRUCTED ON PLAN OF CARE.
--- NOTE | 2018-06-30 15:28 | NUR ---
ASSUMED CARE OF PT AT 0700. PT A&OX4, UP WITH 2 MAX ASSIST, GAIT BELT AND WALKER. PT WAS ANXIOUS AND DEPRESSED AND THERAPEUTIC COMMUNICATION GIVEN . EMOTIONAL PROCESS OF POST CABG EDUCATION PROVIDED. PT VITALS WITHIN NORMAL LIMITS. PT HAS NEW PAIN IN RIGHT FOOT THAT HE DISCUSSED WITH DR. VILLANUEVA. EATTING ENCOURAGED AND PT IS COMPLIANT WITH ENSURE SUPPLEMENT DRINK. IV INFILTRATED AND NEW IV PLACE BY IV TEAM. PT HAD SPONGE BATH WITH OCCUPATIONAL THERAPY. WILL CONT WITH POC
[2018-06-30 16:25] VITALS: BP 140/52
--- NOTE | 2018-06-30 16:25 | NUR ---
spoke with discussing 5n in process. patient and strongly prefer 5N for acute rehab as so close to home and phys can follow. Gave her [facility] for review.
[2018-06-30 20:43] VITALS: BP 145/53
[2018-07-01 04:15] VITALS: BP 141/68
--- NOTE | 2018-07-01 07:52 | NUR ---
ASSESSMENTS CHARTED. C/O CPAP NOT WORKING CORRECTLY, NOT BREATHING SMOOTHLY WITH MACHINE. PULSE OX AT 95%. SWITCHED PATIENT TO 2 LITERS NASAL CANULA AND SAT HIM UP SLIGHTLY. PATIENT WAS ABLE TO SLEEP EASILY THROUGH THE NIGHT WITHOUT SNORING. C/O PAIN IN LEFT LEG 4/10, AND PAIN IN RIGHT FOOT 3/10. PATIENT VERY TENSE AND STIFF WHEN GETTING HIM OUT OF BED IN THE MORNING. PUSHING AGAINST SUPPORT INSTEAD OF STANDING STRAIGHT, ALSO WHEN SITTING UP. PLAN OF CARE TO CONTINUE TO WORK WITH PHYSICAL THERAPY.
[2018-07-01 08:00] VITALS: BP 157/65
--- NOTE | 2018-07-01 08:28 | HC ---
[facility] [place] [address] CONSULTATION Name: JORDI HEMPHILL Room #: 207-P ADM IN M.R.#: [id number] Admission: 06/23/18 Attend Phys: Gustabo Ceron MD Discharge: Date of : 44 Report #: [id number] THIS REPORT FOR: //name// CC: Quinten Ceron DATE OF SERVICE: 06/29/2018 CHIEF COMPLAINT: Cellulitis of the left leg. HISTORY OF PRESENT ILLNESS: This is a 77-year-old male patient who is status post coronary artery bypass graft surgery, has a vein harvest sites on the left leg and has developed a mild cellulitis. I have been asked to see him with regard to wound care. ALLERGIES: KAMILLA INHIBITORS. CURRENT MEDICATIONS: Include Tylenol, alprazolam, Pacerone, amlodipine, aspirin, Lipitor, ceftriaxone, melatonin, potassium chloride, Senokot. PAST MEDICAL HISTORY: Positive for coronary artery disease, status post coronary artery bypass graft x 4 on 06/23/2018. He has a history of hyperlipidemia, hypertension and chronic obstructive sleep apnea, rectal fistula status post previous repair. SOCIAL HISTORY: The patient denies any history of alcohol or tobacco use. FAMILY HISTORY: Noncontributory. REVIEW OF SYSTEMS: CONSTITUTIONAL: The patient denies fever, chills or weight loss. NEUROLOGICAL: The patient denies focal weakness. ENT: The patient denies earache, nasal drainage or sore throat. CARDIOVASCULAR: The patient denies chest pain, palpitations, diaphoresis. PULMONARY: The patient denies cough or shortness of breath. GASTROINTESTINAL: The patient denies nausea, abdominal pain. ORTHOPEDIC: The patient does note swelling and pain in his left lower extremity. Other systems in a 14-point review of systems are negative. PHYSICAL EXAMINATION: VITAL SIGNS: At this time include temperature 98.1, pulse rate 82, respiratory rate 18, blood pressure 146/61. GENERAL: This is a chronically ill-appearing male patient who appears to be in minimal distress. HEENT: Head normocephalic. Nose and throat clear. [facility] [address] [place] [address] CONSULTATION Name: JORDI HEMPHILL Room #: 207-P ADM IN M.R.#: [id number] Admission: 06/23/18 Attend Phys: Gustabo Ceron MD Discharge: Date of : 44 Report #: [id number] NECK: Supple. LUNGS: Clear. HEART: Regular rhythm. CHEST WALL: Stable, minimally tender with midline sternal incision that is intact and without evidence of infection. ABDOMEN: Soft and bowel sounds are present. EXTREMITIES: Lower extremities demonstrate skin is pink, warm and dry. He has distal pulses that are palpable. There is some edema and redness to the left leg, few small bullae at the vein harvest sites are noted, a small amount of fluid from one of the bulla is able to be obtained on a culture, which will be sent for culture and sensitivity. NEUROLOGIC: The patient is alert and oriented, moving all 4 extremities. LABORATORY DATA: Include sodium 145, potassium 4.1, chloride 110, CO2 of 24, BUN 47, creatinine 1.4, glucose 113. Total protein 6.2, albumin is low at 2.7. White blood cell count 10.7, hemoglobin 8.1. CLINICAL IMPRESSION: 1. Cellulitis, left lower extremity. 2. Coronary artery disease, status post coronary artery bypass graft surgery. The vein harvest site is left lower extremity, 06/23/2018. RECOMMENDATIONS: At this point in time, we will recommend bordered foam over the couple of bullae present on the left leg. We will recommend empiric antibiotic therapy, pending cultures. A culture has been obtained from his left leg today. We recommend to continue current medications. He will need aggressive nutritional support for wound healing. I appreciate being asked to see him in consultation. <ELECTRONICALLY SIGNED> By: Ken Felipe MD 07/01/18 0828 [id number] Ken Felipe MD /nt
[2018-07-01 10:30] VITALS: BP 157/62
--- NOTE | 2018-07-01 11:03 | NUR ---
PER LYNNE AT [facility], AUTH REQUEST HAS BEEN SENT TO THE COMPUTER ENGINEERING TECHNICIAN AND WE ARE AWAITING HIS DECISION. WILL NOTIFY CM/SW SOON WE HEAR FROM [facility].
--- NOTE | 2018-07-01 11:14 | NUR ---
VISITED WITH PATIENT AND HIS AND DTR, WHO VERBALIZED INTEREST IN 5N AND STATED THAT HE "REALLY NEEDS THE INTENSE THERAPIES TO GET HIM HOME SOON POSSIBLE." INVITED THEM TO VISIT , AND THEY STATED PLAN TO COME UP TO [facility] SOMETIME TODAY.
[2018-07-01 11:50] VITALS: BP 135/63
[2018-07-01] MEDS ORDERED: KEFLEX500 M1 PO (12:17)
[2018-07-01] MEDS ORDERED: FERREX 150 PLU1 EAC1 PO (12:17)
[2018-07-01] MEDS ORDERED: HYDROCODON-ACE1 EAC7 PO (12:18)
--- NOTE | 2018-07-01 14:36 | NUR ---
PARTS SALESMAN RECEIVED NOTIFICATION FROM [facility]YN[facility] THAT PATIENT IS DENIED ACUTE REHAB STAY. PEER TO PEER MUST BE SCHEDULED BY TOMORROW (07/02) BY NOON. TO SET UP PEER TO PEER CALL [phone]. REFERENCE #[id number]. MARKETING DEVELOPMENT MANAGER AND ROAD FREIGHT CONDUCTOR INFORMED. THANK YOU FOR THIS REFERRAL.
[2018-07-01 15:50] VITALS: BP 151/55
--- NOTE | 2018-07-01 16:03 | NUR ---
patient denied by insurance acute rehab. Spoke with patient and who are disappointed wonder why their insurance would deny a benefit of acute rehab. They are agreeable to referrals to post acute care and referrals to be sent to the [facility].
--- NOTE | 2018-07-01 16:04 | NUR ---
ASSUMED CARE OF PT AT 0700. PT A&OX4, IN BETTER MOOD TODAY AND IS NOT EXPRESSING NEGATIVE THOUGHTS. PT WORKING WITH PHYSICAL AND OCCUPATIONAL THERAPY FOR OPTIMUM ACTIVITY. AT APPROX 0900 PT FELT DIZZY WHEN AMBULATING HALLWAY. BLOOD PRESSURE CHECKED BY PHYSICAL THERAPY AND WAS APPROX 104/43 AND PT WAS SHAKEY AND COLD. BLOOD SUGAR CHECKED AT 141. PT RECOVERED IN APPROX 15 MINS AND WAS BACK TO HIS NORMAL BLOOD PRESSURE AND NOT SHAKEY ANYMORE. PT'S IV INFILTRATED AND DR. KAY FOSTER'D FOR PT TO HAVE NO ACCESS. STARTED ON HIS PO ANTIBIOTICS TODAY. WILL CONT WITH POC.
[2018-07-01 20:30] VITALS: BP 150/55
--- NOTE | 2018-07-01 23:29 | NUR ---
2000 - PT LAYING IN BED SLEEPING, EASILY ROUSED. COMFORT REQUESTS ACCOMIDATED. DENIES OTHER NEEDS AND COMPLAINTS.
[2018-07-02 04:30] VITALS: BP 143/54
[2018-07-02 07:55] VITALS: BP 143/49
--- NOTE | 2018-07-02 09:42 | NUR ---
FAXED REFERRAL TO [facility] AND LEFT MSG WITH ANTON IN ADM. THAT REFERRAL FAXED [facility] TODAY. FAXED REFERRAL TO [facility] SPOKE WITH HUY IN ADM. SHE WILL REVIEW REFERRAL FOR [facility] TODAY. DCP TO FOLLOW.
[2018-07-02 12:15] VITALS: BP 145/49
--- NOTE | 2018-07-02 12:38 | NUR ---
WOUND FOLLOW UP: PT. WAS SEEN TODAY BY DR. NOBLES AND MYSELF. PT. LEFT LEG IS CLINICALLY BETTER. CELLULITIS IS RESOLVING AND SWELLING IS SUBSIDING. RECOMMENDATIONS: CONTINUE WITH CURRENT PLAN OF CARE. PT. AND STAFF NURSE WERE INSTRUCTED ON PLAN OF CARE.
--- NOTE | 2018-07-02 13:27 | NUR ---
PT. DISCHARGING TODAY TO [facility]. FAXED DC ORDERS/SUMMARY TO FACILITY AND SPOKE WITH HUY IN ADM. SHE RECEIVED DC ORDERS AND SET UP TRANSPORTATION VIA [employer] [facility] AT 1500. NOTIFIED AND PT, IN RM OF TIME OF TRANSPORT. UNIT NOTIFIED AND CHART COPY PER US. RN TO CALL REPORT TO [phone].
--- NOTE | 2018-07-02 14:30 | NUR ---
Promotions Executive Producer visited with the pt and his at bedside this morning and again this afternoon to confirm dc plans for today. They are agreeable to snf and want a private room. BOP accepted and submitted for auth. Auth rec'd from the ins per Bess and they will have a w/c van here at 3pm to pickup the pt. Pt and his spouse are agreeable. [facility] was their second choice. Chart copy is ready and nursing to call report.
--- NOTE | 2018-07-02 14:59 | NUR ---
ASSESSMENT CHARTED - MEDS PER JUL - PT SHEREE DIET AND FLUIDS - GIVEN HYDRCODONE FOR CO'S OF PAIN WITH DESIRED EFFECT. AMBULATING IN THE HALLWAY AND IN ROOM. PT GIVEN SUPPOSITORY FOR CO'S OF NO BM - PT HAD MOD SIZE BM -STATED THAT IT WASN'T ENOUGH. PT T SNF THIS AFTERNOON - REPORT CALLED TO LISA AT [facility] - PT LEFT UNIT VIA WHEELCHAIR VAN - WILL FOLLOW TO FACILITY.
== END 2018-07-02 15:01 | DRG 235 ==
LOC: ICU 05:24 → 2N 05:24 → TBA 05:24 → PRE 06:18 → ICU 13:13 → PRE 13:27 → 2N 06-28 16:37
PROVIDERS: Nurse Practitioner Adult Health; Student in an Organized Health Care Education/Training Program; Surgery Vascular Surgery; ADMIT Family Medicine
DX: I25.10 Atherosclerotic heart disease of native coronary artery without angina pectoris (principal); J96.00 Acute respiratory failure, unspecified whether with hypoxia or hypercapnia; N17.9 Acute kidney failure, unspecified; L03.116 Cellulitis of left lower limb; D62 Acute posthemorrhagic anemia; T81.40XA Infection following a procedure, unspecified, initial encounter; E78.5 Hyperlipidemia, unspecified; G47.33 Obstructive sleep apnea (adult) (pediatric); I73.9 Peripheral vascular disease, unspecified; N18.9 Chronic kidney disease, unspecified; I70.1 Atherosclerosis of renal artery; J98.4 Other disorders of lung; I65.23 Occlusion and stenosis of bilateral carotid arteries; K59.00 Constipation, unspecified; I48.0 Paroxysmal atrial fibrillation; M10.9 Gout, unspecified; I12.9 Hypertensive chronic kidney disease with stage 1 through stage 4 chronic kidney disease, or unspecified chronic kidney disease; Z98.42 Cataract extraction status, left eye; Z98.41 Cataract extraction status, right eye; Z79.82 Long term (current) use of aspirin; Z79.899 Other long term (current) drug therapy
CPT/HCPCS: 10078; 10081; 47000; 47001; 47002; 47297; 48888; 50249; 50409; 50456; 50498; 50668; 51301; 52131; 52259; 52314; 53327; 53358; 54118; 56455; 56524; 56525; 56526; 56527; 56528; 56531; 56639; 56668; 56760; 56898; 57093; 62110; 62950; 65003; 65047; 65090; 65135; 83006

== ENCOUNTER → 2018-10-02 | Outpatient (CLI) | payer OTHER ==
[~2018-10-02] MED LIST changes: +FERREX 150 PLU1 EAC1 PO; +HYDROCODON-ACE1 EAC7 PO; +KEFLEX500 M1 PO
== END ==
LOC: HYPER 07:45
DX: L03.116 Cellulitis of left lower limb (principal); S80.12XA Contusion of left lower leg, initial encounter; I89.0 Lymphedema, not elsewhere classified; I73.9 Peripheral vascular disease, unspecified; I10 Essential (primary) hypertension; M79.81 Nontraumatic hematoma of soft tissue; I25.119 Atherosclerotic heart disease of native coronary artery with unspecified angina pectoris; N18.9 Chronic kidney disease, unspecified; E78.00 Pure hypercholesterolemia, unspecified; G62.9 Polyneuropathy, unspecified; G47.33 Obstructive sleep apnea (adult) (pediatric); X58.XXXA Exposure to other specified factors, initial encounter; Y93.89 Activity, other specified; Y92.89 Other specified places as the place of occurrence of the external cause; Y99.8 Other external cause status

== ENCOUNTER → 2018-10-08 | Outpatient (CLI) | payer OTHER | LOC: HYPER 06:56 | DX: L03.116 Cellulitis of left lower limb (principal); S80.12XD Contusion of left lower leg, subsequent encounter; I89.0 Lymphedema, not elsewhere classified; I25.119 Atherosclerotic heart disease of native coronary artery with unspecified angina pectoris; I12.9 Hypertensive chronic kidney disease with stage 1 through stage 4 chronic kidney disease, or unspecified chronic kidney disease; N18.9 Chronic kidney disease, unspecified; M79.81 Nontraumatic hematoma of soft tissue; E78.00 Pure hypercholesterolemia, unspecified; I73.9 Peripheral vascular disease, unspecified; G62.9 Polyneuropathy, unspecified; G47.30 Sleep apnea, unspecified; X58.XXXD Exposure to other specified factors, subsequent encounter ==

== ENCOUNTER → 2018-11-05 | Outpatient (CLI) | payer OTHER | LOC: HYPER 06:44 | DX: L03.116 Cellulitis of left lower limb (principal); M79.81 Nontraumatic hematoma of soft tissue; I89.0 Lymphedema, not elsewhere classified; I25.119 Atherosclerotic heart disease of native coronary artery with unspecified angina pectoris; I12.9 Hypertensive chronic kidney disease with stage 1 through stage 4 chronic kidney disease, or unspecified chronic kidney disease; N18.9 Chronic kidney disease, unspecified; I73.9 Peripheral vascular disease, unspecified; E78.00 Pure hypercholesterolemia, unspecified; G62.9 Polyneuropathy, unspecified; G47.33 Obstructive sleep apnea (adult) (pediatric) ==

== ENCOUNTER → 2018-12-07 | Outpatient (CLI) | payer OTHER | LOC: HYPER 11-24 07:21 | DX: L03.116 Cellulitis of left lower limb (principal); I12.9 Hypertensive chronic kidney disease with stage 1 through stage 4 chronic kidney disease, or unspecified chronic kidney disease; N18.9 Chronic kidney disease, unspecified; I73.9 Peripheral vascular disease, unspecified; I25.119 Atherosclerotic heart disease of native coronary artery with unspecified angina pectoris; I89.0 Lymphedema, not elsewhere classified; E78.00 Pure hypercholesterolemia, unspecified; G62.9 Polyneuropathy, unspecified; M79.81 Nontraumatic hematoma of soft tissue; G47.33 Obstructive sleep apnea (adult) (pediatric) ==

== ENCOUNTER → 2019-03-15 | Outpatient (CLI) | payer OTHER | LOC: HYPER 11:20 | DX: L03.116 Cellulitis of left lower limb (principal); I89.0 Lymphedema, not elsewhere classified; M79.81 Nontraumatic hematoma of soft tissue; E78.00 Pure hypercholesterolemia, unspecified; G62.9 Polyneuropathy, unspecified; G47.33 Obstructive sleep apnea (adult) (pediatric); I25.119 Atherosclerotic heart disease of native coronary artery with unspecified angina pectoris; I12.9 Hypertensive chronic kidney disease with stage 1 through stage 4 chronic kidney disease, or unspecified chronic kidney disease; N18.9 Chronic kidney disease, unspecified; I73.9 Peripheral vascular disease, unspecified ==

== ENCOUNTER → 2020-02-23 | Outpatient (CLI) | payer MEDICARE | LOC: SJCVC 15:16 | PROVIDERS: ATTEND Internal Medicine Cardiovascular Disease | DX: I25.10 Atherosclerotic heart disease of native coronary artery without angina pectoris (principal); I44.0 Atrioventricular block, first degree; R94.31 Abnormal electrocardiogram [ECG] [EKG]; I45.10 Unspecified right bundle-branch block; I77.9 Disorder of arteries and arterioles, unspecified; I70.1 Atherosclerosis of renal artery; I73.9 Peripheral vascular disease, unspecified; I10 Essential (primary) hypertension; E78.00 Pure hypercholesterolemia, unspecified; G47.33 Obstructive sleep apnea (adult) (pediatric) ==

== ENCOUNTER → 2020-03-27 | Outpatient (CLI) | payer OTHER | LOC: SJCVC 10:28 | PROVIDERS: ATTEND Nurse Practitioner | DX: R94.31 Abnormal electrocardiogram [ECG] [EKG] (principal); I10 Essential (primary) hypertension; I25.10 Atherosclerotic heart disease of native coronary artery without angina pectoris; R00.1 Bradycardia, unspecified; I44.0 Atrioventricular block, first degree; I45.10 Unspecified right bundle-branch block; I77.9 Disorder of arteries and arterioles, unspecified; I73.9 Peripheral vascular disease, unspecified; E78.1 Pure hyperglyceridemia; E78.00 Pure hypercholesterolemia, unspecified ==

== ENCOUNTER → 2020-04-19 | Outpatient (CLI) | payer OTHER | LOC: HYPER 08:59 | PROVIDERS: ATTEND Emergency Medicine | DX: L97.822 Non-pressure chronic ulcer of other part of left lower leg with fat layer exposed (principal); I89.0 Lymphedema, not elsewhere classified; I12.9 Hypertensive chronic kidney disease with stage 1 through stage 4 chronic kidney disease, or unspecified chronic kidney disease; N18.9 Chronic kidney disease, unspecified; E78.00 Pure hypercholesterolemia, unspecified; G62.9 Polyneuropathy, unspecified; G47.33 Obstructive sleep apnea (adult) (pediatric); I73.89 Other specified peripheral vascular diseases; Z95.1 Presence of aortocoronary bypass graft; Z98.49 Cataract extraction status, unspecified eye ==

== ENCOUNTER → 2020-07-19 | Outpatient (CLI) | payer OTHER | LOC: SJCVC 13:14 | PROVIDERS: ATTEND Internal Medicine Cardiovascular Disease | DX: Z51.81 Encounter for therapeutic drug level monitoring (principal); G47.33 Obstructive sleep apnea (adult) (pediatric); I25.10 Atherosclerotic heart disease of native coronary artery without angina pectoris; I12.9 Hypertensive chronic kidney disease with stage 1 through stage 4 chronic kidney disease, or unspecified chronic kidney disease; N18.9 Chronic kidney disease, unspecified; E78.00 Pure hypercholesterolemia, unspecified; I73.9 Peripheral vascular disease, unspecified; Z95.1 Presence of aortocoronary bypass graft; Z79.01 Long term (current) use of anticoagulants ==

== ENCOUNTER → 2020-10-10 | Outpatient (CLI) | payer OTHER | LOC: SJCVC 14:39 | PROVIDERS: ATTEND Internal Medicine Cardiovascular Disease | DX: R94.31 Abnormal electrocardiogram [ECG] [EKG] (principal); I45.10 Unspecified right bundle-branch block; I25.10 Atherosclerotic heart disease of native coronary artery without angina pectoris; I44.0 Atrioventricular block, first degree; I10 Essential (primary) hypertension; E78.1 Pure hyperglyceridemia; I73.9 Peripheral vascular disease, unspecified; Z95.1 Presence of aortocoronary bypass graft; Z88.8 Allergy status to other drugs, medicaments and biological substances; Z79.899 Other long term (current) drug therapy ==

== ENCOUNTER → 2020-12-25 | Outpatient (CLI) | payer OTHER | LOC: MRI 12:01 | PROVIDERS: ATTEND Family Medicine | DX: M51.36 Other intervertebral disc degeneration, lumbar region (principal); M48.061 Spinal stenosis, lumbar region without neurogenic claudication; M47.816 Spondylosis without myelopathy or radiculopathy, lumbar region; M51.37 Other intervertebral disc degeneration, lumbosacral region ==

== ENCOUNTER → 2021-01-08 | Outpatient (CLI) | payer OTHER ==
[~2021-01-08] VITALS: Ht 22.9 cm; Wt 87.5 kg
[~2021-01-08] MED LIST changes: +ALLOPURINOL 30300 M1 PO; -BYSTOLIC 5 MG5 M1 PO; +BYSTOLIC10 MG PO; +CLOMIPHENE CITR50 MG PO; +FINASTERIDE5 MG PO
[2021-01-08 09:23] VITALS: BP 134/65
--- NOTE | 2021-01-08 09:59 | NUR ---
Pain Clinic Assessment: 1. History of Osteoarthritis: DENIES History of Rheumatoid Arthritis: DENIES 2. Height: 5 ft. 9 in. 22.9 cm. Weight: 193.0 lb. oz. 87.544 kg. Patient's BMI: 1669.4 3. Vital Signs: BP: 134/65 Pulse: 52 Resp: 14 Temp: 02 Sat: 97 ECG Mon: 4. Pain Intensity: 1 (PREV 10) 5. Fall Risk: Dizziness: N Needs help standing or walking: N Fallen in the last 3 months: N Fall risk comments: 6. Patient on Blood Thinner: None 7. History of Hypertension: Y 8. Opioid Therapy greater than 6 weeks: N Opiate Contract Signed: 9. Risk Assessment Tool Provided: LOW-0 10. Functional Assessment Tool: 11. Recreational Drug Use: Never Drug Type: Tobacco Use: Never Smoker Tobacco Type: Amount or Packs/day: How Many Years: Alcohol Use: Yes Frequency: Daily Quant: 1 TO 2
== END ==
LOC: PAIN 07:01
PROVIDERS: ATTEND Anesthesiology Pain Medicine
DX: M47.26 Other spondylosis with radiculopathy, lumbar region (principal); I10 Essential (primary) hypertension; Z72.89 Other problems related to lifestyle; Z79.899 Other long term (current) drug therapy; Z79.891 Long term (current) use of opiate analgesic

== ENCOUNTER → 2021-07-03 | Outpatient (CLI) | payer OTHER | LOC: SJCVC 13:10 | PROVIDERS: ATTEND Internal Medicine Cardiovascular Disease | DX: I45.10 Unspecified right bundle-branch block (principal); R94.31 Abnormal electrocardiogram [ECG] [EKG]; I48.91 Unspecified atrial fibrillation; I10 Essential (primary) hypertension; E78.1 Pure hyperglyceridemia; I44.0 Atrioventricular block, first degree; I73.9 Peripheral vascular disease, unspecified; E78.00 Pure hypercholesterolemia, unspecified; I77.9 Disorder of arteries and arterioles, unspecified; Z95.1 Presence of aortocoronary bypass graft; G47.30 Sleep apnea, unspecified; Z79.899 Other long term (current) drug therapy; Z98.61 Coronary angioplasty status; Z98.890 Other specified postprocedural states; Z88.8 Allergy status to other drugs, medicaments and biological substances ==